=== PATIENT | female | born 1960 | race Caucasian/White ===

== ENCOUNTER → 2024-04-09 11:53 | Outpatient (REF) | payer BC, SELFPAY | LOC: HWRAD 11:53 | PROVIDERS: ATTENDING PHYSICIAN Physician Assistant Medical | DX: M85.80 Other specified disorders of bone density and structure, unspecified site (principal) | CPT/HCPCS: 77080 ==

== ENCOUNTER → 2024-04-15 08:18 | Outpatient (REF) | payer BC, SELFPAY | LOC: WDC 08:18 | PROVIDERS: ATTENDING PHYSICIAN Physician Assistant Medical | DX: Z12.31 Encounter for screening mammogram for malignant neoplasm of breast (principal) | CPT/HCPCS: 77063; 77067 ==

== ENCOUNTER → 2024-06-12 10:10 | Outpatient (REF) | payer BC, SELFPAY | LOC: RAD 10:10 | PROVIDERS: ATTENDING PHYSICIAN Nurse Practitioner Family | DX: R10.2 Pelvic and perineal pain (principal); R31.9 Hematuria, unspecified; Z87.442 Personal history of urinary calculi | CPT/HCPCS: 74176 ==

== ENCOUNTER 2025-03-06 07:00 | Emergency (ER) | payer MEDICARE, SELFPAY ==
[2025-03-06 07:03] VITALS: BP 145/91
[2025-03-06 08:01] VITALS: BMI 28.2
--- NOTE | 2025-03-06 08:09 | ED.GENMED ---
History of Present Illness
General
Chief Complaint: Abdominal Pain
Source: patient
Exam Limitations: none
Time Seen by Provider: 03/06/25 07:58
History of Present Illness
History of Present Illness:
64yoF with a history of IBS, GERD, diverticulosis, and kidney stones presenting for evaluation of abdominal pain. Patient reports throbbing pain in her right groin over the past several months. She has been experiencing some discomfort in the R
flank/R abdomen over the past week. She initially thought she may have pulled a muscle. Pain became worse around dinnertime last night. The pain was bad enough that she became nauseous and had several episodes of vomiting. The pain has been
constant since last night. Pain is now localized to the right lower quadrant. Pain improves after applying heat. She believes she may have a hernia or appendicitis. She has not felt any bulge in the groin. She had an episode of diarrhea
yesterday but otherwise is usually constipated. She denies any dysuria, fevers, chills, chest pain, shortness of breath. Only previous abdominal surgery is a hysterectomy.
Past History
Past History
ED Past Medical History: GERD and Other (constipation, Diverticulitis, IBS, SORTO ( Nonalcoholic steatohepatits))
ED Past Surgical History: Gynecological (Hysterectomy)
Social History
Tobacco: Non-smoker
Alcohol: Occasional
Personal:
Living: with family
Employment: Employed
Phy Exam
General Physical Exam
General Presentation: well appearing and no apparent distress
General age: appears stated age
General Skin: warm and dry
General Habitus: normal
General Mental: alert
ENT Exam
ENT Exam: normocephalic
Cardiovascular Exam
Cardiovascular Exam: regular rate/rhythm and no murmur
Pulmonary Exam
Pulmonary Exam: lungs clear, no respiratory distress, no rales, no crackles, no rhonchi and no wheezing
Gastrointestinal Exam
Gastrointestinal Exam: soft, non distended, no cva tenderness and other (+Tenderness in the RLQ. Abdomen soft, non-distended. No rebound or guarding. No palpable hernia. No CVA tenderness. )
Neurological Exam
Neurological Exam: alert
[place] Coma Scale
Eye Opening: Spontaneous
Verbal Response: Oriented
Motor Response: Obeys Commands
GCS Total Score: 15
Skin Exam
Skin Exam: normal color and warm/dry
Psychiatric Exam
Psychiatric Exam: normal mood/affect
Course
Orders/Labs/Results
Orders:
Orders
03/06/25 08:09
0.9% Sodium Chloride 1000 ml [Nss] 1,000 ml IV BOLUS
03/06/25 08:10
CT Abd/pelvis W Iv Cont Urgent
Comment:
Reason For Exam: RLQ pain
03/06/25 08:13
CMP [Comprehensive Metabolic Panel] Urgent
Complete Blood Count/With Diff Urgent
Lipase Urgent
Urinalysis Reflex To Culture Urgent
Date Specimen was Collected: 03/06/25
Time Specimen was Collected: 07:56
Urine Microscopic Reflex Cult Urgent
Urine Culture Urgent
JULIAN Source: U
Specimen Description:
Date Specimen was Collected: 03/06/25
Time Specimen was Collected: 07:56
Abnormal Lab Results
03/06/25
08:13
WBC 3.8 L 10^3/uL
(4.8-10.8)
Absolute Lymphs (auto) 1.1 L 10^3/uL
(1.2-3.4)
Monocytes % 9.8 H %
(1.7-9.3)
Eosinophils % 6.9 H %
(0-6)
Carbon Dioxide 31 H mmol/L
(22-30)
ALT 45 H U/L
(0-35)
Leukocyte Esterase Rfl 1+ A
(Negative)
03/06/25 08:13
03/06/25 08:13
Vital Signs
Initial and Last Documented VS:
Initial Vital Signs
Temp Pulse Resp BP Pulse Ox
97.6 F 67 18 145/91 98
03/06/25 07:03 03/06/25 07:03 03/06/25 07:03 03/06/25 07:03 03/06/25 07:03
Last Documented Vital Signs
Temp Pulse Resp BP Pulse Ox
97.6 F 67 18 122/77 97
03/06/25 07:03 03/06/25 07:03 03/06/25 07:03 03/06/25 10:00 03/06/25 08:13
MDM/Problems Addressed
Differential Diagnosis Includes:
64yoF here with RLQ pain. Has been having R flank/abd pain x 1 week which became worse last night. Now localized to the RLQ. Improves with heat. +Vomiting and diarrhea yesterday. No f/c. VSS. She is well appearing in no distress. No signs of
peritonitis on abdominal exam. Differential diagnosis includes but is not limited to: appendicitis, mesenteric adenitis, colitis, kidney stone, UTI, pyelonephritis, ovarian pathology, nonspecific abdominal pain
Initial ED plan: Check abdominal labs, UA, and CT abdomen. IV fluid bolus. She declines analgesics and states her pain is currently mild.
*Critical Care Note
Total Time (30-74mins, 75-104mins- exclusive of procedures): Not Applicable
Update Note
Update Note:
Imaging shows a 3.7 mm distal right ureteral stone. No signs of infection on urinalysis and renal function is stable. Patient has not required any pain medication throughout ED stay. No indication for hospitalization. There are several
incidental findings on imaging including fatty liver and a very large hiatal hernia containing the entire stomach and transverse colon. Findings discussed with patient. She reports a history of a large hiatal hernia since and has seen
gastroenterology for this. She was provided with a copy of the radiology report. Supportive care discussed including hydration, Flomax, and urine straining. Offered prescription for oxycodone. Patient states she has leftover oxycodone at home
from a prior issue that she can use. Advised close follow-up with urology and ED return precautions discussed including fevers and uncontrolled pain. Patient in agreement with plan and was discharged in stable condition.
ED Attending Note
-
Portions of this chart may have been created with voice recognition software.� Occasional wrong word or��sound alike� substitutions may have occurred due to the inherent limitations of voice recognition software.
Discharge Plan
Departure
Patient Disposition: Home (Routine Discharge)
Date of Disposition: 03/06/25
Time of Disposition: 10:16
Patient with high blood pressure during this ER visit?: No
Discharge Problem:
Calculus of distal right ureter
Instructions: Kidney Stones (DC), How to Strain Your Urine
Prescriptions:
New
tamsulosin [Flomax] 0.4 mg capsule
0.4 mg PO HS Qty: 7 0RF
Referrals:
Luna Reed PA-C [Family Provider] -
Humza Cruz MD [Active] -
Activity Restrictions/Additional Instructions:
Drink plenty of fluids. Strain your urine and take Flomax until stone has passed.
Take Tylenol and ibuprofen for pain. Take oxycodone as needed for severe breakthrough pain.
Please call tomorrow to schedule a follow-up appointment with urology. Return to the ER with any worsening symptoms, uncontrolled pain, or fevers.
Interventions
Interventions:
*Risk Screen - Suicide Last Done: 03/06/25 07:03
*General Assessment Last Done: 03/06/25 07:03
*Neglect/Abuse Screening Last Done: 03/06/25 07:06
*ED- Fall Risk Assessment Last Done: 03/06/25 08:01
*ED COVID-19 Vaccine History Last Done: 03/06/25 08:00
*Nursing Disposition Last Done: 03/06/25 10:25
QK-Bdrbhh-Hjoyrptfss Assessment Last Done: 03/06/25 07:58
Discharge Date and Time
Discharge Date/Time: 03/06/25 10:33
Print Language: GUATEMALAN
[2025-03-06 08:12] VITALS: BP 120/74
[2025-03-06 08:19] LABS: Urine Albumin Negative (Neg - Trace); Urine Bilirubin Negative (Negative); Urine Character Clear (Clear); Urine Color Yellow; Urine Glucose Negative (Negative); Urine Ketone Negative (Negative); Urine Leukocyte 1+ (Negative); Urine Nitrite Negative (Negative); Urine Occult Blood Negative (Negative); Urine Urobilinogen Negative (Neg - 1+)
[2025-03-06] MEDS: NSS 1000 IV (08:23)
[2025-03-06 08:24] LABS: % Basophils 0.5 % (0-2); % Eosinophils 6.9 % (0-6); % Immature Granulocytes 0.3 % (0-0.5); % Lymphocytes 29.8 % (20.5-51.1); % Monocytes 9.8 % (1.7-9.3); % Neutrophils 52.7 % (42.2-75.2); Absolute Eosinophils 0.3 10^3/uL (0-0.7); Absolute Lymphocytes 1.1 10^3/uL (1.2-3.4); Absolute Monocytes 0.4 10^3/uL (0.1-0.6); Hematocrit 41.5 % (37.0-47.0); Hemoglobin 13.9 g/dL (12.0-16.0); Mean Corp Hgb Conc. 33.5 g/dL (33.0-37.0); Mean Corpuscular Hgb 29.2 pg (27.0-31.0); Mean Corpuscular Volume 87.2 fL (81.0-99.0); Mean Platelet Volume 9.6 fL (7.4-10.4); Nucleated Red Blood Cells % 0 %; Platelet Count 212 10^3/uL (130-400); Red Blood Cell Count 4.76 10^6/uL (4.20-5.40); White Blood Cell Count 3.8 10^3/uL (4.8-10.8)
[2025-03-06 08:32] LABS: ALT (SGPT) 45 U/L (0-35); AST (SGOT) 28 U/L (14-36); Albumin 3.8 g/dl (3.5-5.0); Alkaline Phosphatase 102 U/L (38-126); Blood Urea Nitrogen 12 mg/dl (7-17); Calcium 9.7 mg/dl (8.4-10.2); Carbon Dioxide 31 mmol/L (22-30); Chloride 107 mmol/L (98-107); Estimated Creatinine Clearance 79 ml/min; Glucose 99 mg/dl (70-99); Lipase 43 U/L (23-300); Potassium 3.9 mmol/L (3.5-5.1); Sodium 142 mmol/L (135-145); Total Bilirubin 0.6 mg/dl (0.2-1.3); Total Protein 6.6 g/dl (6.3-8.2); eGFR > 60.00
[2025-03-06 08:40] LABS: Urine Red Blood Cell 0-2 /HPF (0-2); Urine Urothelial Cell 0-2 /LPF (FEW)
[2025-03-06 09:00] VITALS: BP 124/73
[2025-03-06 10:00] VITALS: BP 122/77
== END 2025-03-06 10:33 | disposition home or self-care (01) ==
LOC: EMR 07:00
PROVIDERS: Emergency Medicine; EMERGENCY PHYSICIAN Emergency Medicine; FAMILY PHYSICIAN Physician Assistant Medical
DX: N13.2 Hydronephrosis with renal and ureteral calculous obstruction (principal); K58.9 Irritable bowel syndrome, unspecified; Z90.710 Acquired absence of both cervix and uterus
CPT/HCPCS: 96360; 99284; 74177; 80053; 81003; 81015; 83690; 85025; 87086; Q9967

== ENCOUNTER → 2025-04-19 08:24 | Outpatient (REF) | payer MEDICARE, SELFPAY | LOC: WDC 08:24 | PROVIDERS: ATTENDING PHYSICIAN Physician Assistant Medical | DX: Z12.31 Encounter for screening mammogram for malignant neoplasm of breast (principal) | CPT/HCPCS: 77063; 77067 ==

== ENCOUNTER → 2025-05-10 08:27 | Outpatient (REF) | payer MEDICARE, SELFPAY | LOC: RAD 08:27 | PROVIDERS: ATTENDING PHYSICIAN Internal Medicine Gastroenterology; FAMILY PHYSICIAN Physician Assistant Medical | DX: K21.9 Gastro-esophageal reflux disease without esophagitis (principal) | CPT/HCPCS: 74246 ==

== ENCOUNTER 2025-07-16 13:01 | Emergency (ER) | payer MEDICARE, SELFPAY ==
[2025-07-16 13:03] VITALS: BP 120/81
[2025-07-16 13:05] VITALS: BP 120/81
[2025-07-16 13:08] VITALS: BMI 29.3
[2025-07-16] MEDS: DECADRON 10 MG IV (13:13)
[2025-07-16] MEDS: PEPCID 20 MG IV (13:14)
--- NOTE | 2025-07-16 13:14 | ED.GENMED ---
History of Present Illness
General
Chief Complaint: Allergic Reaction
Source: patient
Exam Limitations: none
Time Seen by Provider: 07/16/25 13:04
History of Present Illness
History of Present Illness:
65-year-old female presents via EMS after bee sting. She was at the [employer] [facility] and took a sip of her lemonade not knowing there was a bee in her straw. The bee stung her in the back of her throat. She notes swelling of her throat and the
sensation to clear her throat. She denies shortness of breath. No vomiting. She does not have a known reaction to bee stings other than localized swelling. No other complaints at this time. She received an EpiPen at the [facility] as well as 50 mg IV
Benadryl en route
Past History
Past History
ED Past Medical History: GERD and Other (constipation, Diverticulitis, IBS, SORTO ( Nonalcoholic steatohepatits))
ED Past Surgical History: Gynecological (Hysterectomy)
Social History
Tobacco: Non-smoker
Alcohol: Occasional
Personal:
Living: with family
Employment: Employed
Phy Exam
Physical Exam
Physical Exam:
General: Well-appearing female no acute respiratory distress
HEENT normocephalic atraumatic. Posterior pharynx patent. There is swelling of the para uvula area more so on the right side. The area of the sting was just to the right of the uvula. There is slight swelling of the soft palate on the left side.
No trismus or drooling no stridor
Heart: Regular rate and rhythm
Lungs: Clear no wheeze
Skin warm no rash
Course
Orders/Labs/Results
Orders:
Orders
07/16/25 13:09
Famotidine [Pepcid] 20 mg .ROUTE .STK-MED ONE
07/16/25 13:10
Dexamethasone Sod Phosphate [Decadron] 20 mg .ROUTE .STK-MED ONE
07/16/25 13:12
Dexamethasone Sod Phosphate [Decadron] 10 mg IV NOW STA
Famotidine [Pepcid] 20 mg IV NOW STA
Vital Signs
Initial and Last Documented VS:
Initial Vital Signs
Temp Pulse Resp BP Pulse Ox
98.4 F 103 18 120/81 94
07/16/25 13:03 07/16/25 13:03 07/16/25 13:03 07/16/25 13:03 07/16/25 13:03
Last Documented Vital Signs
Temp Pulse Resp BP Pulse Ox
98.4 F 106 14 120/81 94
07/16/25 13:03 07/16/25 13:05 07/16/25 13:05 07/16/25 13:05 07/16/25 13:17
MDM/Problems Addressed
Differential Diagnosis Includes:
Bee sting to the soft palate just next to the uvula. No respiratory distress status post epi by the first-aid station as well as Benadryl from EMS. Decadron and Pepcid ordered. Will continue to monitor
*Pulse Oximetry
SaO2: 94
Oxygen Mode of Delivery: Room air
Patient hypoxic: no
*Critical Care Note
Total Time (30-74mins, 75-104mins- exclusive of procedures): Not Applicable
Update Note
Update Note:
Patient feeling better after treatment here. No respiratory distress. Posterior pharynx reexamined with less swelling. Advise she continue Benadryl and cold drinks. Stable for discharge
ED Attending Note
-
Portions of this chart may have been created with voice recognition software.� Occasional wrong word or��sound alike� substitutions may have occurred due to the inherent limitations of voice recognition software.
Discharge Plan
Departure
Patient Disposition: Home (Routine Discharge)
Date of Disposition: 07/16/25
Time of Disposition: 15:04
Patient with high blood pressure during this ER visit?: No
Discharge Problem:
Bee sting
Instructions: Insect bites and stings
Prescriptions:
New
epinephrine [EpiPen] 0.3 mg/0.3 mL auto-injector
0.3 mg IM ONCE Qty: 1 0RF
No Action
tamsulosin [Flomax] 0.4 mg capsule
0.4 mg PO HS Qty: 7 0RF
Referrals:
Luna Reed PA-C [Family Provider, Family Practice]
Activity Restrictions/Additional Instructions:
Continue with Benadryl every 4 hours. Use cold drinks or ice chips. Return here if needed otherwise follow-up with your doctor
Interventions
Interventions:
*Risk Screen - Suicide Last Done: 07/16/25 13:09
*General Assessment Last Done: 07/16/25 13:09
*Neglect/Abuse Screening Last Done: 07/16/25 13:09
*ED- Fall Risk Assessment Last Done: 07/16/25 13:09
*ED COVID-19 Vaccine History Last Done: 07/16/25 13:09
ED-Skin Assessment Last Done: 07/16/25 13:07
ED- Pulmonary Assessment Last Done: 07/16/25 13:07
ED- Cardiac Assessment Last Done: 07/16/25 13:07
Discharge Date and Time
Print Language: ITALIAN
[2025-07-16 14:00] VITALS: BP 134/83
[2025-07-16 15:00] VITALS: BP 146/77
== END 2025-07-16 15:20 | disposition home or self-care (01) ==
LOC: EMR 13:01
PROVIDERS: EMERGENCY PHYSICIAN Emergency Medicine; FAMILY PHYSICIAN Physician Assistant Medical
DX: T63.441A Toxic effect of venom of bees, accidental (unintentional), initial encounter (principal); R09.89 Other specified symptoms and signs involving the circulatory and respiratory systems; X58.XXXA Exposure to other specified factors, initial encounter
CPT/HCPCS: 96374; 96375; 99284

== ENCOUNTER 2025-08-12 06:14 | Day surgery (SDC) | payer MEDICARE, SELFPAY ==
[2025-08-12] VITALS (7 sets, daily range): BP systolic 126–147; BP diastolic 75–92; BMI 28.6
[2025-08-12] MEDS: NORMOSOL-R/PLASMALYTE-A 1000 IV (13:17)
== END 2025-08-12 16:50 | disposition home or self-care (01) ==
LOC: SDS 06:14
PROVIDERS: ATTENDING PHYSICIAN Urology
DX: N20.2 Calculus of kidney with calculus of ureter (principal)
CPT/HCPCS: 52356; 74018; 76000; 82365; C1894; C2617